=== PATIENT | female | born 1935 | race Caucasian/White ===

== ENCOUNTER 2020-03-04 12:57 | Emergency (ER) | payer MEDICARE ==
[2020-03-04 15:10] LABS: HEMOGLOBIN 11.9 gm/dl (12.3-15.3); RED BLOOD COUNT 4.43 M/UL (4.00-5.10); WHITE BLOOD COUNT 5.8 K/UL (4.5-11.0)
== END 2020-03-05 08:30 | disposition home or self-care (01) ==
LOC: ER1 12:57
PROVIDERS: Physician Assistant Medical
DX: U07.1 COVID-19 (principal); J12.82 Pneumonia due to coronavirus disease 2019; I10 Essential (primary) hypertension; E11.9 Type 2 diabetes mellitus without complications; J44.9 Chronic obstructive pulmonary disease, unspecified; Z90.710 Acquired absence of both cervix and uterus; Z90.49 Acquired absence of other specified parts of digestive tract; Z95.0 Presence of cardiac pacemaker; Z79.01 Long term (current) use of anticoagulants; Z79.899 Other long term (current) drug therapy
CPT/HCPCS: 36600; 71045; 80053; 81001; 82550; 82553; 82728; 82803; 83615; 83690; 85025; 85379; 85384; 85610; 85730; 86140; 87086; 96374; 99285; J1100; M0239; Q9967; U0002

== ENCOUNTER → 2021-10-14 | Outpatient (CLI) | payer MEDICARE | LOC: KOH-I 13:53 | DX: D32.0 Benign neoplasm of cerebral meninges (principal); G93.9 Disorder of brain, unspecified | CPT/HCPCS: 70450 ==